=== PATIENT | male | born 1965 | race Caucasian/White ===

== ENCOUNTER 2017-11-21 08:53 | Emergency (ER) | payer MEDICAID ==
[2017-11-21] MEDS: ONDANSETRON 4 MG INJ IV (09:11)
[2017-11-21] MEDS: HYDROmorphONE 1 MG/ML SYG IV (09:12)
[2017-11-21] MEDS: PROPOFOL 200 MG INJ IV (10:45)
== END 2017-11-21 12:40 | disposition home or self-care (01) ==
LOC: E/R 08:53
DX: S43.004A Unspecified dislocation of right shoulder joint, initial encounter (principal); F17.210 Nicotine dependence, cigarettes, uncomplicated; W11.XXXA Fall on and from ladder, initial encounter; Y92.9 Unspecified place or not applicable
CPT/HCPCS: 23650; 73030-RT; 94770; 96374; 96375; 99285-25

== ENCOUNTER 2017-11-26 22:00 | Emergency (ER) | payer MEDICAID ==
[2017-11-26] MEDS: KETOROLAC 30 MG INJ IV (22:35)
[2017-11-26] MEDS: morphine 4 MG/ML VIAL IV (22:35)
[2017-11-26] MEDS: ONDANSETRON 4 MG INJ IV (22:35)
[2017-11-26] MEDS: ETOMIDATE 20 MG INJ IV (22:59)
== END 2017-11-27 01:38 | disposition home or self-care (01) ==
LOC: E/R 11-27 01:38
DX: S43.014A Anterior dislocation of right humerus, initial encounter (principal); R40.2142 Coma scale, eyes open, spontaneous, at arrival to emergency department; R40.2252 Coma scale, best verbal response, oriented, at arrival to emergency department; R40.2362 Coma scale, best motor response, obeys commands, at arrival to emergency department; X58.XXXA Exposure to other specified factors, initial encounter; Y92.9 Unspecified place or not applicable; Z87.891 Personal history of nicotine dependence
CPT/HCPCS: 23650; 73030-RT; 94770; 96374; 96375; 99285-25